=== PATIENT | male | born 1965 | race Caucasian/White ===

== ENCOUNTER 2016-10-06 08:40 | Day surgery (SDC) | payer OTHER ==
[2016-10-06] MEDS ORDERED: PROPOFOL/EMULSION 500 MG/50 ML BOTTLE IV ONE (10:35)
--- NOTE | 2016-10-06 11:54 | GPN ---
[f rep st] PROCEDURE NOTE aCorrected report DATE OF PROCEDURE: 10/06/2016 PREPROCEDURE DIAGNOSES: 1. Cirrhosis. 2. Screening for esophageal varices. 3. Screening for colon cancer. POSTPROCEDURE DIAGNOSES: 1. Gastritis. 2. Colon polyps. ANESTHESIA: General. INDICATIONS: The patient is a 51-year-old gentleman with a history of thrombocytopenia and cirrhosis secondary to alcohol. He also has obstructive sleep apnea. He is here for upper endoscopy for screening for esophageal varices, and colonoscopy for screening for colon polyps. The risks and benefits of the procedure were discussed with the patient. Consent obtained. Risks include, but not limited to, bleeding, perforation, risks of sedation. The patient is ASA class 3. DESCRIPTION OF PROCEDURE: The end-viewing endoscope was inserted in the esophagus, into the stomach and second portion of the duodenum. The esophagus showed 2 cm of LA grade class B esophagitis at the gastroesophageal junction. No esophageal varices were seen. The stomach showed diffuse gastritis and likely portal hypertensive gastropathy. Biopsies were taken to evaluate for Helicobacter pylori using cold biopsy forceps. There were no gastric varices seen on retroflexion. The duodenum and second portion were normal. The patient was then repositioned and the adult colonoscope was advanced into the terminal ileum, which appeared normal. There was stool throughout the colon precluding adequate visualization for screening for colon polyps. Despite the poor prep, I found 4 colon polyps in the transverse colon. Two were 1-2 mm and removed using cold biopsy forceps. The 2 other transverse colon polyps were 4-5 mm and removed using hot snare polypectomy technique and sent off to pathology. They were all placed in a transverse colon polyp jar. Three additional polyps were found, 1 in the descending colon, 1 in the sigmoid colon and 1 in the rectum. These polyps measured between 3 and 5 mm and were removed using hot snare polypectomy technique. The descending colon polyp was unable to be retrieved for pathology. Retroflexed views in the rectum were normal. IMPRESSION: 1. Esophagitis. 2. Portal hypertensive gastropathy/gastritis, status post biopsies. 3. Poor colonoscopy preparation. 4. Multiple colon polyps, removed. RECOMMENDATIONS: 1. Advance diet as tolerated. 2. Discharge home with escort. 3. Follow up in our [facility] as previously scheduled. 4. Continue present medications. 5. Followup the final pathology results. Results known within 10 days. 6. Given multiple polyps and poor preparation, I recommend repeating colonoscopy with 2 day GoLYTELY prep at the hospital for colonoscopy screening purposes. This should be scheduled with the next available appointment. 7. Repeat EGD in 1 at the hospital for varices surveillance Thank you for allowing me to participate in the care of your patient. Please do not hesitate to call with questions. /[id number]/MODL Marycarmen WT, 10/08/16, waldemar RASHID
[2016-10-06] MEDS ORDERED: ALBUTEROL 3 ML DEYVIAL IH ONE (13:30)
== END 2016-10-06 14:00 | disposition home or self-care (01) ==
LOC: FSGY 08:40
PROVIDERS: ATTEND Internal Medicine Gastroenterology
PROC: 0DBL8ZX Excision of Transverse Colon, Via Natural or Artificial Opening Endoscopic, Diagnostic (ICD-10-PCS; principal; 2016-10-06 10:45)
PROC: 0DB68ZX Excision of Stomach, Via Natural or Artificial Opening Endoscopic, Diagnostic (ICD-10-PCS; principal; 2016-10-06 10:45)
PROC: 0DBN8ZX Excision of Sigmoid Colon, Via Natural or Artificial Opening Endoscopic, Diagnostic (ICD-10-PCS; principal; 2016-10-06 10:45)
PROC: 0DBP8ZX Excision of Rectum, Via Natural or Artificial Opening Endoscopic, Diagnostic (ICD-10-PCS; principal; 2016-10-06 10:45)
DX: Z13.810 Encounter for screening for upper gastrointestinal disorder (principal); Z12.11 Encounter for screening for malignant neoplasm of colon; K29.70 Gastritis, unspecified, without bleeding; K20.9 Esophagitis, unspecified; D12.3 Benign neoplasm of transverse colon; K63.5 Polyp of colon; K70.30 Alcoholic cirrhosis of liver without ascites; J44.9 Chronic obstructive pulmonary disease, unspecified; F17.200 Nicotine dependence, unspecified, uncomplicated; G47.33 Obstructive sleep apnea (adult) (pediatric)
CPT/HCPCS: J2704